=== PATIENT | male | born 2000 | race Caucasian/White ===

== ENCOUNTER 2024-02-10 19:44 | Emergency (ER) | payer MEDICAID ==
[~2024-02-10] VITALS: Ht 188 cm; Wt 81.6 kg
[2024-02-10 20:12] VITALS: BP 110/74; PULSE 65; RESP 18; TEMP 98.7; O2SAT 100
== END 2024-02-10 21:08 | disposition home or self-care (01) ==
LOC: MED 19:44
DX: S16.1XXA Strain of muscle, fascia and tendon at neck level, initial encounter (principal); F07.81 Postconcussional syndrome; V89.2XXA Person injured in unspecified motor-vehicle accident, traffic, initial encounter; Y93.89 Activity, other specified; Y92.410 Unspecified street and highway as the place of occurrence of the external cause; Y99.8 Other external cause status
CPT/HCPCS: 99283